=== PATIENT | male | born 1985 | race Caucasian/White ===

== ENCOUNTER 2016-09-20 22:23 | Emergency (ER) | payer OTHER, MEDICAID ==
[2016-09-20 22:35] VITALS: BP 129/75; PULSE 96; RESP 18; TEMP 97.2; O2SAT 96
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
[2016-09-20] MEDS ORDERED: HYDROCOD/APAP 5/325 PREPACK#6 BTL TAKEHOME ONE (22:55)
--- NOTE | 2016-09-20 23:33 | DX ---
Right thumb, 4 views History: Pain post fall, trauma, pain. Findings: No acute fracture or dislocation identified. No evidence of fracture of the right thumb or first metacarpal. Impression: 1. No definite acute fracture. 2. Recommend additional imaging if symptoms persist, if clinically indicated.
== END 2016-09-20 23:08 | disposition home or self-care (01) ==
LOC: CED 22:23
DX: S69.91XA Unspecified injury of right wrist, hand and finger(s), initial encounter (principal); W00.9XXA Unspecified fall due to ice and snow, initial encounter; Z72.0 Tobacco use
CPT/HCPCS: 73140; G0463; L3807; 99214-PO

== ENCOUNTER 2016-10-24 21:52 | Emergency (ER) | payer OTHER, MEDICAID | END 2016-10-24 22:25 | disposition left against medical advice (07) | LOC: CED 21:52 | DX: F41.9 Anxiety disorder, unspecified (principal); Z53.21 Procedure and treatment not carried out due to patient leaving prior to being seen by health care provider ==

== ENCOUNTER 2016-11-07 20:28 | Emergency (ER) | payer OTHER, MEDICAID ==
[2016-11-07 20:49] VITALS: O2SAT 96
[2016-11-07] MEDS ORDERED: LIDOCAINE 2% JELLY 5 ML TUBE TP ONE (20:51)
[2016-11-07] MEDS ORDERED: LIDOCAINE 2% 100 MG/5 ML SYR IVP ONE (21:04)
--- NOTE | 2016-11-07 21:07 | UCPHY ---
H & P Time Seen by Provider: 11/07/16 20:55 Patient Type: Established HPI/ROS: CHIEF COMPLAINT: Left lower extremity pain, injury HISTORY OF PRESENT ILLNESS: 31-year-old male presents reporting that he was pulling a [employer] when it it fell onto his left leg. Reports that the left leg was scraped on the thigh and lower tib-fib with [employer] agent then resting on his ankle. Happened at 3 o'clock this afternoon. Has been ambulatory with some difficulty. Took ibuprofen for pain. Otherwise well. No numbness or tingling in the lower extremity. REVIEW OF SYSTEMS: As per HPI PAST MEDICAL HISTORY: Anxiety SOCIAL HISTORY: . GENERAL APPEARANCE: Alert, somewhat anxious, reporting pain in the leg. FOCUSED EXAM OF left lower extremity: 20 cm abrasions present over the left anterior thigh. No deformity. Extensor mechanism intact. 15 cm abrasion present over the lower tib-fib, no deformities. Superficial abrasions present on the dorsum of the left foot, tenderness palpation just inferior to the lateral malleoli. Neurovascular exam: Good capillary refill, normal sensation. Extensor mechanism intact. Full range of motion. Smoking Status: Former smoker Constitutional: Initial Vital Signs Temperature (C) 36.8 C 11/07/16 20:45 Heart Rate 77 11/07/16 20:45 Respiratory Rate 16 11/07/16 20:45 Blood Pressure 102/69 11/07/16 20:45 O2 Sat (%) 96 11/07/16 20:45 O2 Delivery Mode Room Air Allergies/Adverse Reactions: Penicillins Allergy (Severe, Verified 11/07/16 20:49) Anaphylaxis Sulfa (Sulfonamide Antibiotics) Allergy (Severe, Verified 11/07/16 20:49) Anaphylaxis codeine [Codeine] Allergy (Intermediate, Verified 11/07/16 20:49) Other-Enter Comments hydromorphone HCl [From Dilaudid] Allergy (Intermediate, Verified 11/07/16 20:49 ) Rash Home Medications: Medication Instructions Recorded Sertraline HCl 11/07/16 MDM/Departure - MDM Diagnostics: X-ray: Left femur was obtained. I viewed the images myself on the PACS system. My interpretation of the images is: No fracture. The radiologist interpretation is pending at this time. I discussed the x-ray findings with the patient. X-ray: Left ankle was obtained. I viewed the images myself on the PACS system. My interpretation of the images is: No fracture. The radiologist interpretation is pending at this time. I discussed the x-ray findings with the patient. Medications Given: Discontinued Medications Lidocaine (Lidocaine 2% Jelly) 1 benigno TP EDNOW ONE Stop: 11/07/16 20:52 Last Admin: 11/07/16 21:03 Dose: 1 benigno ED Course/Re-evaluation: 31-year-old male with abrasions on his thigh tib-fib as well as mild swelling at the ankle following a injury. No fractures visualized. The wounds cleaned and dressed. Patient requested narcotic medications which I declined. Differential Diagnosis: Differential diagnosis for the patient's injury was considered including but not limited to contusion, abrasion, laceration, fracture, open fracture, or dislocation. - Depart Disposition: Home, Routine, Self-Care Clinical Impression: Tib-fib abrasion Abrasion of thigh, left Qualifiers: Encounter type: initial encounter Qualified Code(s): S70.312A - Abrasion, left thigh, initial encounter Ankle pain, left Qualifiers: Chronicity: acute Qualified Code(s): M25.572 - Pain in left ankle and joints of left foot Condition: Good Instructions: Abrasion (ED) Additional Instructions: I recommend Ibuprofen (Motrin, Advil) or Naproxen Sodium (Aleve) for pain and anti-inflammatory effects. You may take either one, but do not take both. Your dose is: Ibuprofen 600 mg every 6-8 hours with food. OR Naproxen Sodium (Aleve) 220 mg every 12 hours. Keep abrasions clean and dry. Watch for signs of infection. Referrals: Alicia Piña MD [Primary Care Provider] - As per Instructions - PQRS PQRS Measurement: Not applicable
[2016-11-07] MEDS ORDERED: BACITRACIN OINTMENT 1 PACKET TP ONE (22:21)
[2016-11-07 22:30] VITALS: BP 113/71; PULSE 68; RESP 20; TEMP 98.1
== END 2016-11-07 22:26 | disposition home or self-care (01) ==
LOC: CED 20:28
DX: S70.312A Abrasion, left thigh, initial encounter (principal); M25.572 Pain in left ankle and joints of left foot; W20.8XXA Other cause of strike by thrown, projected or falling object, initial encounter; Z87.891 Personal history of nicotine dependence
CPT/HCPCS: 73551; 73610; G0463; J2001; 99214-PO

== ENCOUNTER 2017-01-24 20:34 | Emergency (ER) | payer OTHER, MEDICAID ==
[2017-01-24 20:38] VITALS: BP 127/70; PULSE 87; RESP 20; TEMP 97.9; O2SAT 98
[2017-01-24] MEDS ORDERED: DIAZEPAM 5 MG TAB PO ONE (21:16)
[2017-01-24] MEDS ORDERED: KETOROLAC 30 MG/1 ML SDV IM ONE (21:16)
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
[2017-01-24] MEDS ORDERED: OXYCODONE/APAP 5/325 TAB PO ONE (22:29)
[2017-01-25] MEDS ORDERED: LIDOCAINE 5% 1 EA PATCH TD SCH (09:00)
[2017-01-25] MEDS ORDERED: PATCH REMOVAL 1 EA PATCH TD SCH (21:00)
== END 2017-01-24 22:50 | disposition home or self-care (01) ==
DX: M54.41 Lumbago with sciatica, right side (principal); Z87.891 Personal history of nicotine dependence
CPT/HCPCS: 96372; 99284; J1885

== ENCOUNTER 2017-03-26 17:37 | Emergency (ER) | payer OTHER, MEDICAID ==
[2017-03-26 17:54] VITALS: BP 135/75; PULSE 79; RESP 18; TEMP 98; O2SAT 98
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
== END 2017-03-26 18:32 | disposition home or self-care (01) ==
LOC: CED 17:37
DX: S40.012A Contusion of left shoulder, initial encounter (principal); S69.92XA Unspecified injury of left wrist, hand and finger(s), initial encounter; Z87.891 Personal history of nicotine dependence; W01.0XXA Fall on same level from slipping, tripping and stumbling without subsequent striking against object, initial encounter
CPT/HCPCS: 73030; 73110; 99283; L3908

== ENCOUNTER 2017-05-30 16:06 | Emergency (ER) | payer OTHER, MEDICAID ==
[2017-05-30 16:34] VITALS: BP 106/72; PULSE 99; RESP 16; TEMP 99; O2SAT 96
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
== END 2017-05-30 17:21 | disposition home or self-care (01) ==
LOC: CED 16:06
DX: S46.911A Strain of unspecified muscle, fascia and tendon at shoulder and upper arm level, right arm, initial encounter (principal); Z87.891 Personal history of nicotine dependence; X58.XXXA Exposure to other specified factors, initial encounter; Y99.8 Other external cause status; Y93.H1 Activity, digging, shoveling and raking

== ENCOUNTER 2017-08-13 03:31 | Emergency (ER) | payer OTHER, MEDICAID ==
[2017-08-13 03:35] VITALS: RESP 18; TEMP 99; O2SAT 96
[2017-08-13] MEDS ORDERED: IBUPROFEN 600 MG TAB PO ONE (03:56)
[2017-08-13] MEDS ORDERED: LIDOCAINE 5% 1 EA PATCH TD ONE (03:58)
--- NOTE | 2017-08-13 03:58 | EDPHY ---
H & P Stated Complaint: hurt neck twisting wrong while being under the dash of a car 3pm today Time Seen by Provider: 08/13/17 03:42 HPI/ROS: Chief Complaint: Neck pain HPI: 32-year-old male presenting complaining of right-sided neck pain that started about 4 o'clock yesterday afternoon. Patient states he was working on his car when his sister called when when he turns his head to look he felt a pulling in the right side of his neck. He has had right by sided pain and spasm since that time. About 6 o'clock yesterday he took 800 mg of ibuprofen he has also taken Tylenol. He is presenting now complaining of persistent pain. No numbness or weakness. No fevers or chills. No pain in the middle of his neck. He is walking without any difficulty. No headache. Denies any other injuries. ROS: 10 point Review of Systems is negative except as noted in the HPI. PMH: Depression Social History: Positive smoking, no alcohol, no recreational drug use Family History: non-contributory Physical Exam: Gen: Awake, Alert, No Distress HEENT: Nose: no rhinorrhea Eyes: PERRLA, EOMI Mouth: Moist mucosa Neck: Patient has palpable spasm in his right trapezius. No midline tenderness or step-offs. Chest: nontender, lungs clear to auscultation Heart: S1, S2 normal, no murmur Abd: Soft, non-tender, no guarding Back: no CVA tenderness, no midline tenderness Ext: no edema, non-tender Skin: no rash Neuro: CN II-XII intact, Sensation grossly intact, Strength 5/5 in bilateral upper and lower extremities - Personal History Current Tetanus/Diphtheria Vaccine: Yes Current Tetanus Diphtheria and Acellular Pertussis (TDAP): Yes Tetanus Vaccine Date: 2011 - Medical/Surgical History Hx Asthma: No Hx Chronic Respiratory Disease: No Hx Diabetes: No Hx Cardiac Disease: No Hx Renal Disease: No Hx Cirrhosis: No Hx Alcoholism: No Hx HIV/AIDS: No Hx Splenectomy or Spleen Trauma: No Other PMH: "Lung surgery", knee surgery, skin grafts, ear tubes, tonsillectomy, chews tobacco, anxiety,pneumothorax - Social History Smoking Status: Former smoker Constitutional: Initial Vital Signs Temperature (C) 37.2 C 08/13/17 03:32 Heart Rate 80 08/13/17 03:32 Respiratory Rate 18 08/13/17 03:32 Blood Pressure 115/62 08/13/17 03:32 O2 Sat (%) 96 08/13/17 03:32 O2 Delivery Mode Room Air Allergies/Adverse Reactions: Penicillins Allergy (Severe, Verified 08/13/17 03:35) Anaphylaxis Sulfa (Sulfonamide Antibiotics) Allergy (Severe, Verified 08/13/17 03:35) Anaphylaxis codeine [Codeine] Allergy (Intermediate, Verified 08/13/17 03:35) Other-Enter Comments hydromorphone HCl [From Dilaudid] Allergy (Intermediate, Verified 08/13/17 03:35 ) Rash Home Medications: Medication Instructions Recorded Lidocaine 5% [Lidoderm 5% Patch 1 ea TD DAILY #30 patch 05/30/17 (*)] Medical Decision Making ED Course/Re-evaluation: I have reviewed the patient in the car all prescription drug monitoring program. Is noted these and multiple prescriptions for narcotics filled at multiple pharmacies. These are prescriptions written by multiple physicians. I have advised that he take ibuprofen 600 mg 3 times a day. He can alternate with Tylenol. I have also placed a Lidoderm patch. He will follow up with primary care physician in 3-4 days for further evaluation. He will return for worsening. Departure - Departure Disposition: Home, Routine, Self-Care Clinical Impression: Cervical strain Condition: Good Instructions: Cervical Strain (ED) Additional Instructions: He may take ibuprofen, 600 mg 3 times a day. You may take acetaminophen 1000 mg 3 times a day. Apply ice for 15 minutes for every 2 hours while awake. You may apply a Lidoderm patch 1 new patch to be replaced every day. Follow up with primary care physician in 3-4 days. Return to the emergency depart for increasing pain, numbness, weakness, tingling in your hands or legs, or any other concerns. Referrals: Patient,NotPresent [Primary Care Provider] - As per Instructions
[2017-08-13 04:05] VITALS: BP 118/60; PULSE 78
[2017-08-13] MEDS ORDERED: LIDOCAINE 5% 1 EA PATCH TD SCH (09:00)
--- NOTE | 2017-08-13 11:22 | ASDISCHSUM ---
Discharge Information Plan Status:Home with No Needs Medically Cleared to Leave: Discharge Date:08/13/2017 04:03 AM CM D/C Disposition:Home, Routine, Self-Care ADT D/C Disposition:Home, Routine, Self-Care Projected Discharge Date:08/13/2017 04:03 AM Transportation at D/C:None or Unknown Discharge Delay Reason: Follow-Up Date:08/13/2017 04:03 AM Discharge Slot: Final Diagnosis: Placement Information Patient Contact Information Contact Name:TYLERROLF Relationship:Sister Address: Work Phone: City:[place] Phone: [facility] Code:[place] Email: Financial Information Financial Class: Primary Plan Desc:MEDICARE OUTPATIENT Primary Plan Number:[id number] Secondary Plan Desc:MEDICAID HEALTH FIRST [place] OP Secondary Plan Number:[id number] Assessment Information LACE LACE Acuity / Level of Care Answers: No. Emergency dept visits in Answers: 4+ last 6 months Score: 4 Date Signed: 08/13/2017 11:18 AM Electronically Signed By:Kinsey Read RN Intervention Information
== END 2017-08-13 04:03 | disposition home or self-care (01) ==
DX: S16.1XXA Strain of muscle, fascia and tendon at neck level, initial encounter (principal); Z87.891 Personal history of nicotine dependence; X58.XXXA Exposure to other specified factors, initial encounter; Y99.8 Other external cause status; Y93.89 Activity, other specified

== ENCOUNTER 2017-09-15 00:16 | Emergency (ER) | payer OTHER, MEDICAID ==
[2017-09-15 00:28] VITALS: BP 102/79; PULSE 103; RESP 18; TEMP 98.4; O2SAT 97
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
[2017-09-15] MEDS ORDERED: ACETAMINOPHEN 500 MG TAB PO ONE (00:59)
== END 2017-09-15 01:20 | disposition left against medical advice (07) ==
DX: S16.1XXA Strain of muscle, fascia and tendon at neck level, initial encounter (principal); Z87.891 Personal history of nicotine dependence; V43.52XA Car driver injured in collision with other type car in traffic accident, initial encounter; Y92.410 Unspecified street and highway as the place of occurrence of the external cause; Y99.8 Other external cause status; Y93.89 Activity, other specified

== ENCOUNTER 2017-10-31 13:10 | Emergency (ER) | payer OTHER, MEDICAID ==
[2017-10-31 13:27] VITALS: TEMP 98.1
[2017-10-31] MEDS ORDERED: ACETAMINOPHEN 500 MG TAB PO ONE (14:07)
[2017-10-31] MEDS ORDERED: LIDOCAINE 4%/MENTHOL 1% PATCH TD ONE (14:07)
[2017-10-31] MEDS ORDERED: KETOROLAC 15 MG/1 ML SDV IVP ONE (14:07)
[2017-10-31] MEDS ORDERED: CYCLOBENZAPRINE 10 MG TAB PO ONE (14:07)
--- NOTE | 2017-10-31 14:35 | EDPHY ---
H & P Time Seen by Provider: 10/31/17 13:59 HPI/ROS: CHIEF COMPLAINT: Bilateral groin pain HISTORY OF PRESENT ILLNESS: 32-year-old male presents emergency department reporting pain in his bilateral an abductor muscles of his thighs. 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 This morning he presents with significant discomfort on the inner aspects of both thighs and thinks he has strained both of his groins. He denies any vomiting. He denies any bulging in the area. He denies a history of hernias. He tried ibuprofen with little relief. Pain is worse with standing and walking. No fever. Denies any IV drug use. Denies any direct trauma to the area. Denies a fall. REVIEW OF SYSTEMS: Aside from elements discussed in the HPI, a comprehensive 10-point review of systems was reviewed and is negative. PAST MEDICAL HISTORY: Spontaneous pneumothorax SOCIAL HISTORY: Former smoker. VITAL SIGNS: see nurse's notes. GENERAL: Well-developed, well-nourished, in mild distress. He is quite uncomfortable when needing to walk or move around. HEENT: Benign exam. No trauma. Neck: supple, FROM. LUNGS: Clear to auscultation bilaterally, no wheezes, rhonchi or rales. CARDIAC: Regular rate and rhythm, no rubs, murmurs or gallops. ABDOMEN: Soft, no abdominal tenderness on examination. No tenderness over the inguinal groin while lying flat. No bulge noted. Patient has discomfort over the ABductors as well as pain with engagement of the hamstrings. BACK: No CVA tenderness. No vertebral tenderness. EXTREMITIES: No edema, FROM. NEURO: Alert and oriented, grossly nonfocal. SKIN: Warm and dry, no rash. Smoking Status: Former smoker Constitutional: Initial Vital Signs Temperature (C) 36.7 C 10/31/17 13:19 Heart Rate 93 10/31/17 13:19 Respiratory Rate 20 10/31/17 13:19 Blood Pressure 120/79 10/31/17 13:19 O2 Sat (%) 98 10/31/17 13:19 O2 Delivery Mode Room Air Allergies/Adverse Reactions: Penicillins Allergy (Severe, Verified 10/31/17 13:27) Anaphylaxis Sulfa (Sulfonamide Antibiotics) Allergy (Severe, Verified 10/31/17 13:27) Anaphylaxis codeine [Codeine] Allergy (Intermediate, Verified 10/31/17 13:27) Other-Enter Comments hydromorphone HCl [From Dilaudid] Allergy (Intermediate, Verified 10/31/17 13:27 ) Rash Home Medications: Medication Instructions Recorded Sertraline HCl 09/15/17 Clorazepate Dipotassium 10/31/17 Cyclobenzaprine [Flexeril 10 MG 10 mg PO TID PRN #15 tab 10/31/17 (RX)] Lidocaine 5% [Lidoderm 5% Patch 0.5 ea TD DAILY #6 patch 10/31/17 (*)] Medical Decision Making - Diagnostics Imaging Results: Imaging Impressions Pelvis X-Ray 10/31/17 14:08 Impression: Negative. Imaging: I viewed and interpreted images myself ED Course/Re-evaluation: Plain AP pelvis x-ray was obtained to evaluate for an avulsion injuries. This was negative. Patient received Toradol IM, lidocaine patch, Flexeril. Evaluation and was discussed with the patient. I did advise him to follow up with his primary care physician. He states he has 1 but cannot remember the gentleman's name. Patient did request a narcotic prescription; I did not provide him with narcotics. Differential Diagnosis: Differential diagnoses for the patient's symptom complex was considered including but not limited to strain, sprain, avulsion fracture, overuse syndrome , deep space infection. - Data Points Medications Given: Discontinued Medications Acetaminophen (Tylenol) 1,000 mg PO EDNOW ONE Stop: 10/31/17 14:08 Last Admin: 10/31/17 14:35 Dose: 1,000 mg Cyclobenzaprine HCl (Flexeril) 10 mg PO EDNOW ONE Stop: 10/31/17 14:08 Last Admin: 10/31/17 14:34 Dose: 10 mg Ketorolac Tromethamine (Toradol) 15 mg IVP EDNOW ONE Stop: 10/31/17 14:08 Last Admin: 10/31/17 14:36 Dose: 15 mg Miscellaneous Medication (Icy Hot Lidocaine/Menthol 4%/1% Patch) 2 patch TD EDNOW ONE Stop: 10/31/17 14:08 Last Admin: 10/31/17 14:39 Dose: 2 patch Departure - Departure Disposition: Home, Routine, Self-Care Clinical Impression: bilateral groin strain Condition: Good Instructions: Muscle Strain (ED), Groin Strain (ED) Additional Instructions: I recommend you treat the groin pain with anti-inflammatories, muscle relaxants , and pain medications. I recommend Ibuprofen (Motrin, Advil) or Naproxen Sodium (Aleve) for pain and anti-inflammatory effects. You may take either one, but do not take both. Your dose is: Ibuprofen 600 mg every 6-8 hours with food. OR Naproxen Sodium (Aleve) 220 mg every 12 hours. For muscle relaxation, you been given a prescription of Flexeril. Please take this as directed. It may make you sleepy. For pain relief, I suggest high-dose Tylenol (650mg-1000mg of Tylenol) up to 3 times a day. Not exceed 3000 mg in a 24 hour period. I also suggest lidocaine patches. 4% lidocaine patches are available over-the- counter. Apply ice for 20-30 minutes every 2-3 hours for the next 48 hours. After 48 hours, a heating pad or hot tub may feel better. Please follow up with your primary care physician if you're not improving as expected in the next several days. Consider physical therapy or chiropractic followup for persistent discomfort. Return to the emergency department if you experience significantly worsening pain, pain radiating into the legs, weakness, numbness or tingling, difficulties with bowel or bladder, fever, nausea, vomiting, or other concerns. Referrals: NONE *PRIMARY CARE P,. [Primary Care Provider] - As per Instructions Prescriptions: Cyclobenzaprine [Flexeril 10 MG (RX)] 10 mg PO TID PRN #15 tab PRN Reason: Muscle Spasms Lidocaine 5% [Lidoderm 5% Patch (*)] 0.5 ea TD DAILY #6 patch
[2017-10-31 15:15] VITALS: BP 140/76; PULSE 84; RESP 16; O2SAT 96
[2017-10-31] MEDS ORDERED: PATCH REMOVAL 1 EA PATCH TD SCH (21:00)
== END 2017-10-31 15:15 | disposition home or self-care (01) ==
LOC: CED 13:10
DX: S39.011A Strain of muscle, fascia and tendon of abdomen, initial encounter (principal); Z87.891 Personal history of nicotine dependence; X50.9XXA Other and unspecified overexertion or strenuous movements or postures, initial encounter; Y92.69 Other specified industrial and construction area as the place of occurrence of the external cause; Y99.8 Other external cause status; Y93.H1 Activity, digging, shoveling and raking
CPT/HCPCS: 72170; 96374; 99284; J1885

== ENCOUNTER → 2018-01-10 | Outpatient (CLI) | payer OTHER, MEDICAID | LOC: GIMAGING 15:20 | PROVIDERS: ATTEND Nurse Practitioner Acute Care | DX: M79.644 Pain in right finger(s) (principal) | CPT/HCPCS: 73140-PO ==

== ENCOUNTER 2018-05-22 23:08 | Emergency (ER) | payer OTHER, MEDICAID ==
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
[2018-05-23 00:32] VITALS: BP 128/68
== END 2018-05-23 00:32 | disposition home or self-care (01) ==
LOC: CED 23:08
DX: M25.512 Pain in left shoulder (principal); W19.XXXA Unspecified fall, initial encounter; Y92.9 Unspecified place or not applicable; Z87.891 Personal history of nicotine dependence
CPT/HCPCS: 73030-PO

== ENCOUNTER 2018-12-11 20:45 | Emergency (ER) | payer OTHER, MEDICAID ==
[2018-12-11 20:52] VITALS: BP 121/65
--- NOTE | 2018-12-11 23:06 | EDPHY ---
H & P Time Seen by Provider: 12/11/18 21:23 HPI/ROS: Chief complaint: Left ear pain History of present illness: This is a 33-year-old male who presents to the emergency department for left ear pain. He reports the onset of symptoms over the last few days. Increasing pain and pressure. Today felt a pop in his ear and noticed yellow discharge from his ear and on his pillow. He reports decreased hearing. No fever, no other cold symptoms. He has as history of ear infections and tympanic membrane perforations. Smoking Status: Former smoker Physical Exam: General Appearance: Alert and no distress. Eyes: Pupils equal and round no injection. ENT: Left tympanic membrane appears distorted with possible perforation allergic no erythema or edema, external auditory canal, external ear and surrounding soft tissue unremarkable. Right ear and surrounding soft tissue unremarkable. Nasopharynx is not injected. There is no rhinorrhea. Oropharynx is not injected. There is no edema. There is no exudate. There is no asymmetry. The uvula is midline. No elevation of the tongue. There is no hoarseness, no drooling, no trismus, no stridor. Respiratory: Chest is non tender, lungs are clear to auscultation. Cardiac: regular rate and rhythm Musculoskeletal: Neck is supple and non tender. Extremities have full range of motion and are non tender. Skin: No rashes or lesions. Constitutional: Initial Vital Signs Temperature (C) 36.6 C 12/11/18 20:49 Heart Rate 79 12/11/18 20:49 Respiratory Rate 16 12/11/18 20:49 Blood Pressure 121/65 H 12/11/18 20:49 O2 Sat (%) 96 12/11/18 20:49 O2 Delivery Mode Room Air Allergies/Adverse Reactions: Penicillins Allergy (Severe, Verified 05/22/18 23:20) Anaphylaxis Sulfa (Sulfonamide Antibiotics) Allergy (Severe, Verified 05/22/18 23:20) Anaphylaxis codeine [Codeine] Allergy (Intermediate, Verified 05/22/18 23:20) Other-Enter Comments hydromorphone HCl [From Dilaudid] Allergy (Intermediate, Verified 05/22/18 23:20 ) Rash ibuprofen Allergy (Verified 05/22/18 23:20) Home Medications: Medication Instructions Recorded Sertraline HCl 09/15/17 MDM/Departure - [facility] ED Course/Re-evaluation: Patient seen under the supervision of my secondary supervising physician Dr. Paul Zafar. Patient presents to the emergency department for left ear pain and discharge. He does have distorted anatomic landmarks the left tympanic membrane. Unclear if this is acute or chronic. I discussed placing him on antibiotics. Referring him to ENT. He is allergic to ibuprofen, I recommended Tylenol for pain control. While I was writing him up for discharge patient eloped from the emergency room. He did not express any displeasure with my service or express any concerns to other staff members, he simply got up and left. Patient was competent to make his own decisions. Differential Diagnosis: Included but not limited to otitis media, otitis externa, tympanic membrane perforation, mastoiditis - Depart Disposition: Against Medical Advice Clinical Impression: Tympanic membrane rupture Qualifiers: Laterality: left Qualified Code(s): H72.92 - Unspecified perforation of tympanic membrane, left ear Condition: Fair Referrals: NONE *PRIMARY CARE P,. [Primary Care Provider] - As per Instructions
== END 2018-12-11 21:59 | disposition left against medical advice (07) ==
DX: H72.92 Unspecified perforation of tympanic membrane, left ear (principal); Z87.891 Personal history of nicotine dependence